=== PATIENT | female | born 1975 | race Caucasian/White ===

== ENCOUNTER 2019-11-23 05:55 | Emergency (ER) | payer OTHER ==
[~2019-11-23] VITALS: Ht 162.6 cm; Wt 100.7 kg
[2019-11-23 05:55] VITALS: BP 132/88
--- NOTE | 2019-11-23 06:32 | PHYS DOC ---
Past History Past Medical History: No Pertinent History Past Surgical History: Other Additional Past Surgical Histo: DNC Alcohol Use: Occasionally General Adult EDM: Chief Complaint: Neck Pain HPI: HPI: 44-year-old female presents with left-sided neck pain. The patient woke up about 2 weeks ago with a left-sided neck discomfort. It has continued to ache daily since that time. Over the last few days, she feels like it is getting worse. Last night she woke up and the pain was so significant that it caused her to vomit a couple times. She really has been unable to sleep at all. The pain radiates down her left arm to around the elbow. She feels like it is a spasming tightening sensation. She has noticed decreased strength in the left hand, but no specific numbness or tingling. She thinks her sensation is the same as it always been. The patient further complains that this pain has occasionally radiated around to her chest. She denies shortness of breath or diaphoresis. No cardiac history. The history of neck trouble recently or in the past. No significant history of trauma involving the shoulder, neck, or head. She denies fever or chills. Review of Systems: Review of Systems: Constitutional: Denies fever or chills Eyes: Denies change in visual acuity HENT: Left-sided neck pain Respiratory: Denies cough or shortness of breath Cardiovascular: Chest tightness GI: Denies abdominal pain, nausea, vomiting, bloody stools or diarrhea : Denies dysuria Musculoskeletal: Left Arm pain Integument: Denies rash Neurologic: Denies headache, focal weakness or sensory changes Endocrine: Denies polyuria or polydipsia Lymphatic: Denies swollen glands Psychiatric: Denies depression or anxiety Heart Score: Risk Factors: Risk Factors: DM, Current or recent (<one month) smoker, HTN, HLP, family history of CAD, obesity. Risk Scores: Score 0 - 3: 2.5% MACE over next 6 weeks - Discharge Home Score 4 - 6: 20.3% MACE over next 6 weeks - Admit for Clinical Observation Score 7 - 10: 72.7% MACE over next 6 weeks - Early Invasive Strategies Allergies: Allergies: Allergies Coded Allergies Type Severity Reaction Last Updated Verified No Known Allergies Allergy Unknown 11/23/19 Yes Physical Exam: PE: Constitutional: Well developed, well nourished, obese, no acute distress, non- toxic appearance. [] HENT: Normocephalic, atraumatic, bilateral external ears normal, oropharynx moist, no oral exudates, nose normal. [] Eyes: PERRLA, EOMI, conjunctiva normal, no discharge. [] Neck: Tenderness of the left cervical paraspinal muscles, tenderness left tr apezius upper half. Patient holding her head slightly flexed for comfort. [] Cardiovascular: Heart rate regular rhythm, no murmur [] Lungs & Thorax: Bilateral breath sounds clear to auscultation [] Abdomen: Bowel sounds normal, soft, no tenderness, no masses, no pulsatile masses. [] Skin: Warm, dry, no erythema, no rash. [] Back: No tenderness, no CVA tenderness. [] Extremities: No tenderness, no cyanosis, no clubbing, ROM intact, no edema. [] Neurologic: Alert and oriented X 3, normal motor function, normal sensory function, no focal deficits noted. [] Psychologic: Affect normal, judgement normal, mood normal. [] Current Patient Data: Vital Signs: Vital Signs Date Time Temp Pulse Resp B/P (MAP) Pulse Ox O2 Delivery O2 Flow Rate FiO2 11/23/19 05:55 97.4 110 20 132/88 (103) 98 Room Air EKG: EKG: Sinus rhythm, rate 98, normal axis, no ST elevations or depressions. [] Radiology/Procedures: Radiology/Procedures: [] Impressions: Chest PA only at 0622: Reason for examination: Neck pain with radiculopathy. The heart size is normal. Mediastinum is unremarkable. Lung messina are clear. No acute bony abnormalities are seen. Impression: No acute cardiopulmonary disease. Cervical spine 3 views: The cervical vertebral bodies are normally aligned anteriorly and posteriorly. No acute fracture or subluxation is seen. Posterior elements are intact. The odontoid process appears to be intact and normally centered between the lateral masses of C1. The intervertebral disc spaces are maintained. Prevertebral soft tissues are normal. IMPRESSION: No acute abnormality evident in the cervical spine. Electronically signed by: Leslie Braga MD (11/23/2019 6:45 AM) [facility] DICTATED AND SIGNED BY: LESLIE BRAGA MD DATE: 11/23/19 0645 CC: ROCHELLE HA DO; JONAH CRUZ MD ~ Course & Med Decision Making: Course & Med Decision Making Pertinent Labs and Imaging studies reviewed. (See chart for details) EKG is unremarkable. The patient's labs are unremarkable. Her chest x-ray is unremarkable. Her cervical x-ray did not show any significant acute findings. This does not rule out cervical disc herniation. I have explained to the patient this is a possibility for her symptoms. I will treat her with muscle relaxer and 10 days of prednisone to see if this improves her symptoms. She will follow-up with her primary care physician and consider further specialist referrals if this treatment plan does not resolve her symptoms. She is stable for discharge at this time. [] Dragon Disclaimer: Dragon Disclaimer: This electronic medical record was generated, in whole or in part, using a voice recognition dictation system. Departure Departure: Impression: Primary Impression: Cervical radicular pain Additional Impression: Neck pain Disposition: HOME/RESIDENCE PRIOR TO ADM Condition: STABLE Referrals: JONAH CRUZ MD (PCP) Patient Instructions: Cervical Radiculopathy, Gktv-cy-Aarx Scripts Prednisone (PREDNISONE) 10 Mg Tablet 10 MG PO UD for PREDNISONE TAPER, #36 TAB 0 Refills Take 5 tablets by mouth daily for 3 days, then take 4 tablets by mouth daily for 3 days, then take 2 tablet by mouth daily for 3 days, then take 1 tablet by mouth daily for 3 days, then stop. Prov: ROCHELLE HA DO 11/23/19 Cyclobenzaprine Hcl (CYCLOBENZAPRINE HCL) 10 Mg Tablet 1 TAB PO TID PRN for MUSCLE SPASMS, #30 TAB Prov: ROCHELLE HA DO 11/23/19 Justification of Admission: Justification of Admission: Justification of Admission Dx: No ROCHELLE HA DO Nov 23, 2019 06:32
--- NOTE | 2019-11-23 06:48 | RAD ---
Chest PA only at 0622: Reason for examination: Neck pain with radiculopathy. The heart size is normal. Mediastinum is unremarkable. Lung messina are clear. No acute bony abnormalities are seen. Impression: No acute cardiopulmonary disease. Cervical spine 3 views: The cervical vertebral bodies are normally aligned anteriorly and posteriorly. No acute fracture or subluxation is seen. Posterior elements are intact. The odontoid process appears to be intact and normally centered between the lateral masses of C1. The intervertebral disc spaces are maintained. Prevertebral soft tissues are normal. IMPRESSION: No acute abnormality evident in the cervical spine. Electronically signed by: Leslie Mccauley MD (11/23/2019 6:45 AM) [facility]
[2019-11-23 06:50] LABS: BASO # 0.1 x10^3/uL (0.0-0.2); BASO % 1 % (0-3); EOS # 0.1 x10^3/uL (0.0-0.7); EOS % 1 % (0-3); HEMATOCRIT 44.3 % (36.0-47.0); HEMOGLOBIN 15.1 g/dL (12.0-15.5); LYMPH # 2.9 x10^3/uL (1.0-4.8); LYMPH % 30 % (24-48); MEAN CORPUSCULAR HEMOGLOBIN 30 pg (25-35); MEAN CORPUSCULAR HGB CONC 34 g/dL (31-37); MEAN CORPUSCULAR VOLUME 89 fL (79-100); MONO # 0.6 x10^3/uL (0.0-1.1); MONO % 6 % (0-9); NEUT % 62 % (31-73); PLATELET COUNT 267 x10^3/uL (140-400); RED BLOOD COUNT 4.99 x10^6/uL (3.50-5.40); RED CELL DISTRIBUTION WIDTH 12.8 % (11.5-14.5); WHITE BLOOD COUNT 9.6 x10^3/uL (4.0-11.0)
[2019-11-23 06:54] LABS: CREATININE 0.9 mg/dL (0.6-1.0); GFR 68.3; POTASSIUM 4.2 mmol/L (3.5-5.1)
[2019-11-23 07:00] LABS: ALBUMIN/GLOBULIN RATIO 1.3 (1.0-1.7); TOTAL BILIRUBIN 0.4 mg/dL (0.2-1.0); TOTAL PROTEIN 7.2 g/dL (6.4-8.2)
[2019-11-23 07:06] LABS: BACTERIA,URINE FEW /HPF (0-FEW); BILIRUBIN,URINE NEG (NEG); CLARITY,URINE HAZY; COLOR,URINE YELLOW; GLUCOSE,URINE NEG (NEG); NITRITE,URINE NEG (NEG); SQUAMOUS EPITHELIAL CELL,UR OCC /LPF; UROBILINOGEN,URINE 0.2 mg/dL (0.2 mg/dL)
[2019-11-23] MEDS ORDERED: CYCL-331 PO (07:36)
[2019-11-23] MEDS ORDERED: PRED-220 PO (07:36)
--- NOTE | 2019-11-23 17:02 | EKG ---
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
== END 2019-11-23 07:50 | disposition home or self-care (01) ==
LOC: ER 05:55
DX: M54.12 Radiculopathy, cervical region (principal); R07.89 Other chest pain; M79.602 Pain in left arm; R11.10 Vomiting, unspecified
CPT/HCPCS: 36415; 71045; 72040; 80053; 81001; 84484; 85025; 87086; 93005; 99285